=== PATIENT | male | born 1980 | race Caucasian/White ===

== ENCOUNTER 2018-08-15 14:10 | Day surgery (SDC) | payer BC ==
[~2018-08-15] VITALS: Ht 172.7 cm; Wt 75.7 kg
[2018-08-15 14:51] VITALS: BP 138/93; PULSE 63; TEMP 97.9
[2018-08-15] MEDS ORDERED: DEXILANT30 MG PO (14:57)
[2018-08-15] MEDS ORDERED: WELLBUTRIN XL150 MG PO (14:57)
[2018-08-15 15:45] VITALS: BP 138/89; PULSE 77; TEMP 96.9
[2018-08-15 16:00] VITALS: BP 137/88; PULSE 69
[2018-08-15 16:15] VITALS: BP 135/93; PULSE 72
== END 2018-08-15 16:35 | disposition home or self-care (01) ==
LOC: SDCO 14:10
DX: K22.70 Barrett's esophagus without dysplasia (principal); K21.9 Gastro-esophageal reflux disease without esophagitis; K44.9 Diaphragmatic hernia without obstruction or gangrene; Z88.0 Allergy status to penicillin
CPT/HCPCS: J2250; J2405; J3010; J7030

== ENCOUNTER 2018-12-17 05:35 | Day surgery (SDC) | payer BC ==
[2018-12-17] VITALS (11 sets, daily range): BP systolic 118–144; BP diastolic 77–88; PULSE 68–109; TEMP 97.6–99.1
[~2018-12-17] VITALS: Ht 170.2 cm; Wt 74.0 kg
[~2018-12-17 05:35] MED LIST: DEXILANT30 MG PO; WELLBUTRIN XL150 MG PO
[2018-12-17] MEDS ORDERED: ZANTAC 150MG T150 MG PO (06:46)
[2018-12-17] MEDS ORDERED: ADVIL200 MG PO (06:48)
--- NOTE | 2018-12-17 10:25 | NUR ---
PATIENT ARRIVED TO ROOM 349 VIA BED FROM PACU. PATIENT DROWSY BUT AROUSES TO NAME. POST-OP VSS. ABDOMINAL INCISION X6 DRESSED WITH BANDAIDS AND ARE CD&I. SCD'S TO BLE. IV FLUIDS INFUSING TO RIGHT FOREARM IV. CALL LIGHT WITHIN REACH. NO NEEDS AT THIS TIME.
--- NOTE | 2018-12-17 19:32 | NUR ---
END OF SHIFT NOTE. PATIENT TOLERATING CLEAR LIQUIDS. DIET ADVANCED TO FULL LIQUIDS FOR DINNER. REPORT GIVEN TO ALEXUS HOLLEY.
--- NOTE | 2018-12-17 20:30 | NUR ---
Initial shift assessment done- states having pain to right shoulder, abd 03/09 but its better now that he is back in bed- was up to bathroom- voiding without problems, was given scheduled Tylenol, IV fluids of LR at 100cc/hr - taking p.o without nausea
[2018-12-18] VITALS: BP 136/79; PULSE 89; TEMP 98.4
[2018-12-18 03:52] VITALS: BP 127/79; PULSE 59; TEMP 98.1
--- NOTE | 2018-12-18 05:51 | NUR ---
Up to bathroom numerous times- voiding large amounts urine-- taking po without nausea- IV to INT,, medicated with oxycodone x1 and Tylenol ES x2 this shift--Pain is mostly shoulder pain. Lap sites dry and intact with bandaids
[2018-12-18 07:24] VITALS: BP 137/82; PULSE 76; TEMP 97.9
--- NOTE | 2018-12-18 08:00 | NUR ---
PATIENT IS SITTING UP IN BED THIS MORNING. PATIENT IS A&O. TACHYCARDIA NOTED, OTHERWISE VSS. PATIENT STATES THAT HE FEELS WEAKER THAN HIS NORMAL. BOWEL SOUNDS ACTIVE ALL FOUR QUADRANTS. PATIENT TOLERATING FULL LIQUID/BLENDERIZED DIET WITHOUT ANY COMPLAINTS OF N/V. ABDOMINAL LAP SITES X6 DRESSED WITH BANDAIDS AND ARE CD&I. POSITIVE PEDAL PULSES EQUAL BILATERALLY. SCD'S TO BLE. RIGHT FOREARM TO INT. BREAKFAST TRAY ORDERED. CALL LIGHT WITHIN REACH. PATIENT DENIES ANY OTHER NEEDS AT THIS TIME. PATIENT EDUCATED ON ERAS PROTOCOL AND ABDOMINAL SPLINTING WITH A PILLOW.
--- NOTE | 2018-12-18 09:07 | NUR ---
Initial visit; Patient thanked [employer] for introducing herself and offering God's blessings.
[2018-12-18 12:00] VITALS: BP 131/86; BP 9131/86; PULSE 88; TEMP 98.9
[2018-12-18 15:36] VITALS: BP 140/89; PULSE 87; TEMP 98.7
--- NOTE | 2018-12-18 15:50 | NUR ---
OSBALDO hackett met with the patient and his , Yuko, to discuss discharge planning. The [place] his [place]. The patient reports he has been obtaining his prescriptions from the [facility] but wants to exchange administrator to [facility]. The patient reports he does not use any kind of DME. The patient does not have a DPOA but said she would be interested in a copy. OSBALDO hackett gave the a copy to review. No additional needs at this time.
--- NOTE | 2018-12-18 18:53 | NUR ---
PATIENT'S RIGHT FOREARM INT DISCONTINUED PER PENDING DISCHARGE. PATIENT TOLERATED WELL. DISCHARGE INSTRUCTIONS REVIEWED WITH PATIENT AND . ALL QUESTIONS ANSWERED. PATIENT PERSONAL BELONGINGS GATHERED. PATIENT TAKEN TO PERSONAL VEHICLE VIA WHEELCHAIR BY SURGICAL STAFF. PATIENT DISCHARGED.
== END 2018-12-18 19:00 | disposition home or self-care (01) ==
LOC: SDCO 05:35 → SURG 10:25 → SDCO 12-18 19:00
DX: K44.9 Diaphragmatic hernia without obstruction or gangrene (principal); K21.9 Gastro-esophageal reflux disease without esophagitis; K22.70 Barrett's esophagus without dysplasia; F32.9 Major depressive disorder, single episode, unspecified; Z80.0 Family history of malignant neoplasm of digestive organs; Z83.3 Family history of diabetes mellitus; Z82.49 Family history of ischemic heart disease and other diseases of the circulatory system; Z82.3 Family history of stroke; Z88.0 Allergy status to penicillin
CPT/HCPCS: OP; A9284; C1781; J0360; J1100; J1170; J1885; J1956; J2405; J2550; J2704; J2765; J3010; J7120